=== PATIENT | female | born 1930 | race Caucasian/White ===

== ENCOUNTER 2017-03-13 17:17 | Inpatient (IN) ==
[2017-03-13] MEDS ORDERED: NS 500 ML IV ONE (17:41)
[2017-03-13] MEDS ORDERED: DILAUDID IV ONE (17:41)
[2017-03-13] MEDS ORDERED: ZOFRAN IV ONE (17:41)
--- NOTE | 2017-03-13 18:50 | Diag Imaging Result Doc PS360 ---
EXAM: XRAY PELVIS W/HIP 2-3VW LT HISTORY: fall TECHNIQUE: Three views COMPARISON: FINDINGS: There is a femoral neck fracture. The femoral head remains in the acetabulum. Femoral shaft is superiorly placed and rotated. IMPRESSION: Femoral neck fracture Electronically signed by West Schwarz 03/13/2017 6:48 PM
[2017-03-13 19:06] LABS: MANUAL DIFF NEEDED? NO
[2017-03-13 19:14] LABS: BASO% 0.4 % (0.0-0.8); EOS# 0.13 X1000 (0.0-0.7); EOS% 1.2 % (0.0-10.0); HEMOGLOBIN 12.4 g/dL (12.0-16.0); IMM GRAN# 0.07 X1000 (0.0-0.04); IMM GRAN% 0.7 % (0.0-0.5); LYMPH# 2.58 X1000 (1.2-3.4); LYMPH% 24.7 % (20.5-51.1); MCH 29.5 PG (27-31); MCHC 33.5 g/dL (33-37); MCV 88.1 FL (81-99); MONO# 0.57 X1000 (0.11-0.59); MONO% 5.5 % (1.7-9.3); MPV 9.8 FL (7.4-10.4); NEUT% 67.5 % (42.2-75.2); PLT 362 X1000 (130-400)
[2017-03-13 19:24] LABS: INR 1.02; PROTIME 10.7 Seconds (9.2-11.7)
[2017-03-13 19:33] LABS: ALBUMIN 3.9 g/dL (3.5-5.0); POTASSIUM 3.6 mmol/L (3.5-5.1); TOTAL BILIRUBIN 0.21 mg/dL (0.20-1.00); TOTAL PROTEIN 8.4 g/dL (6.3-8.3)
--- NOTE | 2017-03-13 19:42 | PROVIDER DOCUMENTATION ---
This chart was entered by Maty Cox Scribe, acting as scribe for Wesley Parmar MD. HPI-Musculoskeletal Pain/Inj - GENERAL Chief Complaint: Fall Stated Complaint: fall/L hip pain Time Seen by Provider: 03/13/17 17:41 Source: patient - HX OF PRESENT ILLNESS-MUSKULOSKELTAL Nature of Presenting Problem: Pt is 86 y/o F presents to the ED via EMS for L hip pain. Pt states fell while dressing self for bed. Pt denies head injury or LOC. Pt states lost balance Quality of Pain: reports: aching Severity in ED: mild Onset/Duration: just prior to arrival Timing: still present Modifying Factors: improves with: nothing Any recent injury?: Yes (fall ) Locality of Occurance: Home Similar Symptoms Previously?: No Recently seen or treated by another doctor?: No - FALL INJURY Location of Pain/Injury: reports: other (L hip) Pain Radiation: reports: no radiation Reason for Fall: reports: lost balance Symptoms prior to fall:: reports: none Loss of Consciousness: no loss of consciousness Injury Associated Symptoms: reports: denies symptoms - HIP/PELVIS PAIN/INJURY Hip Pain Location: reports: hip (L) Pain Radiation: reports: no radiation Context / Method of Injury: reports: fall Associated Symptoms: reports: weakness in legs/feet (L). denies: loss of bladder control, loss of bowel control, lower back pain, muscle spasms, numbness in legs/feet, sensory/motor loss, tingling in legs/feet Review of Systems - Adult - REVIEW OF SYSTEMS - ADULT Constitutional: reports: no symptoms reported Eyes: reports: no symptoms reported Ears, Nose, Mouth & Throat: reports: no symptoms reported Cardiovascular: reports: no symptoms reported Respiratory: reports: no symptoms reported Gastrointestinal: reports: no symptoms reported Genitourinary: reports: no symptoms reported Musculoskeletal: reports: other (L hip pain). denies: bone pain, back pain, neck pain Integumentary: reports: no symptoms reported Neurological: reports: no symptoms reported Psychiatric: reports: no symptoms reported Endocrine: reports: no symptoms reported Hematologic/Lymphatic: reports: no symptoms reported Allergic/Immunologic: reports: no symptoms reported All Other Systems: Reviewed and Negative Past History - Adult - PAST MEDICAL HISTORY-ADULT Review of Records: reports: Nursing Assessment Review, Medications Reviewed, Social history reviewed & non-contributory. Major Childhood Illnesses: reports: denies history Cardiovascular: reports: HTN Respiratory: reports: denies history Gastrointestinal: reports: denies history Obstetrical/Gynecological: reports: denies history Genitourinary: reports: denies history Musculoskeletal: reports: denies history Neurological: reports: denies history Endocrine/Immune: reports: denies history Other Conditions: reports: denies history - PRIOR SURGERIES/PROCEDURES Surgical/Procedure History: reports: other (C5-6 disc operation) - IMMUNIZATION STATUS Childhood Immunizations: See Nurse Assessment Flu Vaccine: See Nurse Assessment - FAMILY HISTORY Family History: reviewed, not pertinent - SOCIAL HISTORY Smoking: denies Substance Use: denies Living Situation: family Physical Exam-Injury Related - Physical Exam-Injury Related Initial Vital Signs Reviewed: Yes General Appearance: appears well, alert, no apparent distress Eyes: PERRL/EOMI, pink conjunctivae Head, Ears, Nose, Mouth & Throat: normal ENT inspection Neck: normal inspection Respiratory: chest non-tender, lungs clear, normal breath sounds Cardiovascular: normal peripheral pulses, regular rate, rhythm Abdominal Exam: normal bowel sounds, non tender, soft Lymphatic: no adenopathy Back Exam: CVA tenderness (lumbar) Extremity: tenderness (L hip). negative: normal range of motion (limited ROM to L hip due to pain), normal gait, deformity, erythema, swelling Integumentary: normal color, warm/dry Neurologic: grossly normal Psych/Mental Status: normal mood/affect, oriented x 3 Progress - PLAN OF CARE/RESULTS Progress/Plan/Lab Results: Vital Signs - 8 hr 03/13/17 17:17 03/13/17 19:23 Temperature 98.5 F Pulse Rate 103 H 104 H Respiratory Rate 18 16 Blood Pressure 170/94 162/99 O2 Sat by Pulse Oximetry 97 95 Laboratory Results - last 24 hr 03/13/17 03/13/17 03/13/17 17:25 17:25 17:25 WBC 10.43 RBC 4.20 Hgb 12.4 Hct 37.0 MCV 88.1 MCH 29.5 MCHC 33.5 RDW Std Deviation 12.6 Plt Count 362 MPV 9.8 Immature Gran % (Auto) 0.7 H Neut % (Auto) 67.5 Lymph % (Auto) 24.7 Wells % (Auto) 5.5 Eos % (Auto) 1.2 Baso % (Auto) 0.4 Immature Gran # (Auto) 0.07 H Neut # (Auto) 7.04 H Lymph # (Auto) 2.58 Wells # (Auto) 0.57 Eos # (Auto) 0.13 Baso # (Auto) 0.04 PT 10.7 INR 1.02 PTT (Actin FS) 29.0 Sodium 140 Potassium 3.6 Chloride 100 Carbon Dioxide 23 L Anion Gap 17 BUN 47 H Creatinine 1.8 H Estimated GFR/1.73 m2 27 BUN/Creatinine Ratio 26 Glucose 127 H Calculated Osmolality 293 Calcium 10.0 Total Bilirubin 0.21 AST 19 ALT 14 Alkaline Phosphatase 130 H Troponin T Total Protein 8.4 H Albumin 3.9 Globulin 4.5 Albumin/Globulin Ratio 0.9 03/13/17 17:25 WBC RBC Hgb Hct MCV MCH MCHC RDW Std Deviation Plt Count MPV Immature Gran % (Auto) Neut % (Auto) Lymph % (Auto) Wells % (Auto) Eos % (Auto) Baso % (Auto) Immature Gran # (Auto) Neut # (Auto) Lymph # (Auto) Wells # (Auto) Eos # (Auto) Baso # (Auto) PT INR PTT (Actin FS) Sodium Potassium Chloride Carbon Dioxide Anion Gap BUN Creatinine Estimated GFR/1.73 m2 BUN/Creatinine Ratio Glucose Calculated Osmolality Calcium Total Bilirubin AST ALT Alkaline Phosphatase Troponin T < 0.010 Total Protein Albumin Globulin Albumin/Globulin Ratio Orders Category Date Time Status XRAY PELVIS W/HIP 2-3VW LT [RAD] Stat Exams 03/13/17 17:39 Completed CBC WITH ELECTRONIC DIFF [HEME] Stat Lab 03/13/17 17:25 Completed COMPREHENSIVE METABOLIC PANEL [CHEM] Stat Lab 03/13/17 17:25 Completed PROTIME WITH INR [COAG] Stat Lab 03/13/17 17:25 Completed PTT [COAG] Stat Lab 03/13/17 17:25 Completed TROPONIN T Stat Lab 03/13/17 17:25 Completed URINALYSIS [URINALYSIS] Stat Lab 03/13/17 19:00 Uncollected 0.9% Sodium Chloride Inj [Ns] 500 ml Med 03/13/17 17:41 Discontinued IV 999 mls/hr Hydromorphone [Dilaudid] Med 03/13/17 17:41 Discontinued 1 mg IV NOW ONE Ondansetron [Zofran] Med 03/13/17 17:41 Discontinued 4 mg IV NOW ONE Laboratory Tests 03/13/17 03/13/17 03/13/17 17:25 17:25 17:25 WBC 10.43 RBC 4.20 Hgb 12.4 Hct 37.0 MCV 88.1 MCH 29.5 MCHC 33.5 RDW Std Deviation 12.6 Plt Count 362 MPV 9.8 Immature Gran % (Auto) 0.7 H Neut % (Auto) 67.5 Lymph % (Auto) 24.7 Wells % (Auto) 5.5 Eos % (Auto) 1.2 Baso % (Auto) 0.4 Immature Gran # (Auto) 0.07 H Neut # (Auto) 7.04 H Lymph # (Auto) 2.58 Wells # (Auto) 0.57 Eos # (Auto) 0.13 Baso # (Auto) 0.04 PT 10.7 INR 1.02 PTT (Actin FS) 29.0 Sodium 140 Potassium 3.6 Chloride 100 Carbon Dioxide 23 L Anion Gap 17 BUN 47 H Creatinine 1.8 H Estimated GFR/1.73 m2 27 BUN/Creatinine Ratio 26 Glucose 127 H Calculated Osmolality 293 Calcium 10.0 Total Bilirubin 0.21 AST 19 ALT 14 Alkaline Phosphatase 130 H Troponin T Total Protein 8.4 H Albumin 3.9 Globulin 4.5 Albumin/Globulin Ratio 0.9 03/13/17 17:25 WBC RBC Hgb Hct MCV MCH MCHC RDW Std Deviation Plt Count MPV Immature Gran % (Auto) Neut % (Auto) Lymph % (Auto) Wells % (Auto) Eos % (Auto) Baso % (Auto) Immature Gran # (Auto) Neut # (Auto) Lymph # (Auto) Wells # (Auto) Eos # (Auto) Baso # (Auto) PT INR PTT (Actin FS) Sodium Potassium Chloride Carbon Dioxide Anion Gap BUN Creatinine Estimated GFR/1.73 m2 BUN/Creatinine Ratio Glucose Calculated Osmolality Calcium Total Bilirubin AST ALT Alkaline Phosphatase Troponin T < 0.010 Total Protein Albumin Globulin Albumin/Globulin Ratio Orders Category Date Time Status XRAY PELVIS W/HIP 2-3VW LT [RAD] Stat Exams 03/13/17 17:39 Completed CBC WITH ELECTRONIC DIFF [HEME] Stat Lab 03/13/17 17:25 Completed COMPREHENSIVE METABOLIC PANEL [CHEM] Stat Lab 03/13/17 17:25 Completed PROTIME WITH INR [COAG] Stat Lab 03/13/17 17:25 Completed PTT [COAG] Stat Lab 03/13/17 17:25 Completed TROPONIN T Stat Lab 03/13/17 17:25 Completed URINALYSIS [URINALYSIS] Stat Lab 03/13/17 19:00 Uncollected 0.9% Sodium Chloride Inj [Ns] 500 ml Med 03/13/17 17:41 Discontinued IV 999 mls/hr Hydromorphone [Dilaudid] Med 03/13/17 17:41 Discontinued 1 mg IV NOW ONE Ondansetron [Zofran] Med 03/13/17 17:41 Discontinued 4 mg IV NOW ONE Vital Signs Temp Pulse Resp BP Pulse Ox 03/13/17 19:23 104 H 16 162/99 95 03/13/17 17:17 98.5 F 103 H 18 170/94 97 codeine Adverse Reaction (Verified 03/13/17 17:28) RASH Alprazolam 0.25 mg PO BID 04/21/16 Hydrochlorothiazide 25 mg PO DAILY 04/21/16 Omeprazole 20 mg PO DAILY 04/21/16 Tramadol [Ultram] 50 mg PO Q6H PRN 04/21/16 Valsartan 320 mg PO DAILY 04/21/16 Tizanidine HCl [Zanaflex] 8 mg PO QHS 03/13/17 Laboratory 03/13/17 03/13/17 03/13/17 17:25 17:25 17:25 WBC RBC Hgb Hct MCV MCH MCHC RDW Std Deviation Plt Count MPV Immature Gran % (Auto) Neut % (Auto) Lymph % (Auto) Wells % (Auto) Eos % (Auto) Baso % (Auto) Immature Gran # (Auto) Neut # (Auto) Lymph # (Auto) Wells # (Auto) Eos # (Auto) Baso # (Auto) PT 10.7 INR 1.02 PTT (Actin FS) 29.0 Sodium 140 Potassium 3.6 Chloride 100 Carbon Dioxide 23 L Anion Gap 17 BUN 47 H Creatinine 1.8 H Estimated GFR/1.73 m2 27 BUN/Creatinine Ratio 26 Glucose 127 H Calculated Osmolality 293 Calcium 10.0 Total Bilirubin 0.21 AST 19 ALT 14 Alkaline Phosphatase 130 H Troponin T < 0.010 Total Protein 8.4 H Albumin 3.9 Globulin 4.5 Albumin/Globulin Ratio 0.9 03/13/17 17:25 WBC 10.43 RBC 4.20 Hgb 12.4 Hct 37.0 MCV 88.1 MCH 29.5 MCHC 33.5 RDW Std Deviation 12.6 Plt Count 362 MPV 9.8 Immature Gran % (Auto) 0.7 H Neut % (Auto) 67.5 Lymph % (Auto) 24.7 Wells % (Auto) 5.5 Eos % (Auto) 1.2 Baso % (Auto) 0.4 Immature Gran # (Auto) 0.07 H Neut # (Auto) 7.04 H Lymph # (Auto) 2.58 Wells # (Auto) 0.57 Eos # (Auto) 0.13 Baso # (Auto) 0.04 PT INR PTT (Actin FS) Sodium Potassium Chloride Carbon Dioxide Anion Gap BUN Creatinine Estimated GFR/1.73 m2 BUN/Creatinine Ratio Glucose Calculated Osmolality Calcium Total Bilirubin AST ALT Alkaline Phosphatase Troponin T Total Protein Albumin Globulin Albumin/Globulin Ratio Result Diagrams: 03/13/17 17:25 03/13/17 17:25 - EKG 1 Time of EKG reading by physician:: 19:42 EKG Interpretation (*Must complete 3 of following elements*): Normal (NSR with occasional PVC) - XRAY 1 XRAY Study: Hip (left hip fracture) - CONSULTS/PCP/HOSPITALIST Notification #1 *Consult/PCP/Hospitalist*: Dr Borrero Time Discussed: 19:40 Consult Disposition: Admit #2 Consult: Dr Serrano Consult Disposition: other (will see in AM) Departure - Departure Date of Disposition Decision: 03/13/17 Time of Disposition Decision: 19:41 DIAGNOSIS: Fall Qualifiers: Encounter type: initial encounter Qualified Code(s): W19.XXXA - Unspecified fall, initial encounter Hip fracture Qualifiers: Encounter type: initial encounter Fracture type: closed Laterality: left Qualified Code(s): S72.002A - Fracture of unspecified part of neck of left femur , initial encounter for closed fracture Disposition: ADMITTED INPATIENT 09 Certified Medical Emergency: Emergent Condition: Fair Referrals and Follow-Ups: Rosalba Brooks MD [Primary Care Provider] - - Critical Care Note This patient required my direct & personal management of CC.: No This chart was documented by the indicated scribe, (Maty Cox Scribe) and accurately reflects the services I performed and decisions made by me, Wesley Parmar MD, as attested by the provider's signature.
[2017-03-13 19:59] LABS: URINE MICRO REVIEW NEEDED? NO; URINE SOURCE CATH
[2017-03-13 20:06] LABS: BILIRUBIN URINE NEGATIVE (NEGATIVE); BLOOD URINE TRACE (NEGATIVE); COLOR YELLOW; GLUCOSE URINE NEGATIVE (NEGATIVE); LEUKOCYTES URINE LARGE (NEGATIVE); NITRITE URINE POSITIVE (NEGATIVE); PH URINE 5.5; PROTEIN URINE TRACE mg/dL (NEGATIVE); SP GRAVITY URINE 1.009; TURBIDITY URINE HAZY (CLEAR); UR EPITHELIAL CELLS <10 /HPF (<10); URINE BACTERIA 2+ /HPF; URINE RBC <10 /HPF (<10); URINE WBC TNTC /HPF (<10); UROBILINOGEN URINE NORMAL (NORMAL)
[2017-03-13] MEDS ORDERED: ZOFRAN IV PRN (21:41)
[2017-03-13] MEDS: MORPHINE IV PRN (22:00)
[2017-03-13] MEDS: ROCEPHIN 1 GM/NS 1 GM/50 ML IVPB IV SCH (22:05)
[2017-03-13] MEDS ORDERED: TYLENOL PO PRN (22:27)
[2017-03-13] MEDS ORDERED: NS 1,000 ML IV SCH (23:52)
[2017-03-14] MEDS: MORPHINE IV PRN ×3 (00:50→14:44)
--- NOTE | 2017-03-14 03:52 | HISTORY AND PHYSICAL ---
TIME: 2014. PRIMARY CARE PROVIDER: Dr. Brooks. CHIEF COMPLAINT: Fall and left hip pain. HISTORY OF PRESENT ILLNESS: Ms. Morrow is an 86-year-old, female who presented to the ER [facility] after complaints of a fall with left hip pain at approximately 3:30 p.m. on March 13. She states that she was trying to put her pajamas on and was leaning forward to put her pajama shirt on when she lost her balance, falling forward and landing on her left hip. The patient denied any dizziness, lightheadedness, or syncopal episode prior to her fall. She fell from a standing position. She denies any other injuries. She denies hitting her head. She denies any loss of consciousness. Upon arrival to the ER, the patient was noted to have left hip pain with some shortening, though no rotation noted to her left lower extremity. An x- ray of pelvis with left hip view showed a left femoral neck fracture. ER physician did consult Dr. Serrano with orthopedic surgery and he is aware of the patient and will see her in the morning. Also, the patient was noted to have elevated BUN and creatinine with a decreased GFR. The only previous labs we have to compare these to were last drawn in April of 2016. At that time, her GFR was 43, her creatinine was 1.2, though her BUN was within normal limits at 22. The patient denied any known previous history of any kidney disease. She denies any decreased fluid intake, or a decrease in her urine output, or a change in her urine color. She also denies any fever, body aches, or chills. She denied any dysuria or urinary frequency, though she does have a nitrite positive urinary tract infection noted. She also denied any recent changes to any of her medications. She denies any headache, dizziness, lightheadedness, chest pain, shortness of breath, cough, She denies any abdominal pain, nausea, vomiting, diarrhea. She states that her last bowel movement was this morning. It was of normal color. She denies any hematochezia or melena. She denies any history of a previous pulmonary embolism or DVTs. Other than some chronic neck pain that she has secondary to a previous cervical fusion, she has no other pain except for her new onset left hip pain secondary to her fracture. REVIEW OF SYSTEMS: A 12 point review of systems was conducted with the patient. All were negative except for pertinent positives mentioned above in the HPI. PAST MEDICAL HISTORY: 1. Hypertension. 2. 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 3. Anxiety. 4. Gastroesophageal reflux disease. PAST SURGICAL HISTORY: Cervical fusion. SOCIAL HISTORY: The patient denies any past or present alcohol, tobacco, or illicit drug use. She currently lives at home by herself and is normally able to perform her activities of daily living without any assistance, though did state that she has a son that lives close by who is able to help her if she needed. FAMILY HISTORY: Positive for diabetes mellitus in her mother. Her father has a history of prostate cancer and heart disease. She has 12 other siblings. She has 1 sister who has a history of breast cancer. She has a total of 3 brothers who have had colon cancer, 2 of which secondary to this. ALLERGIES: Patient reports allergies to codeine, stating that it caused her to have a rash. HOME MEDICATIONS: Zanaflex 8 mg p.o. at bedtime, valsartan 320 mg p.o. daily, tramadol 50 mg p.o. q.6 hours p.r.n., omeprazole 20 mg p.o. daily, hydrochlorothiazide 25 mg p.o. daily, Xanax 0.25 mg p.o. b.i.d. DIAGNOSTIC DATA/LABORATORY RESULTS: White blood cell count 10.43, hemoglobin 12.4, hematocrit 37, platelet count is 362,000. PT 10.7, INR 1.02, PTT 29. Sodium 140, potassium 3.6, chloride 100, bicarb 23, BUN is 47, creatinine 1.8, with an estimated GFR of 27, glucose 127, calcium 10. Total bilirubin 0.21, AST 19, ALT 14, alkaline phosphatase 130. Troponin was less than 0.01. Urinalysis was obtained via catheter and was positive for trace protein, trace blood, positive nitrites, large leukocytes, too numerous to count white blood cells, and 2+ bacteria. EKG showed sinus rhythm with occasional PVCs as well as some left ventricular hypertrophy at a rate of 99, QTc was 433. Pelvis with left hip view showed a left femoral neck fracture per radiology. PHYSICAL EXAMINATION: VITAL SIGNS: Temperature 99 degrees, heart rate 103, respirations 18, blood pressure 159/71, oxygen saturation is 97% on room air. GENERAL: Ms. Morrow is a very pleasant, 86-year-old, female who is resting comfortably on the ER stretcher. She was in no acute distress. She was awake, alert, and able to answer all questions appropriately. HEENT: Head is atraumatic, normocephalic. Pupils are equal, round, reactive to light, were 3 mm bilaterally and brisk. Subconjunctivae were pink. Oral mucosa was moist. Oropharynx was clear. NECK: Supple. Trachea midline. No carotid bruits noted upon auscultation bilaterally. CARDIOVASCULAR: Patient has normal S1, S2. No murmurs, gallops, or rubs appreciated, with a regular rate and rhythm. PULMONARY: Patient has symmetrical chest expansion bilaterally. Lung sounds are clear to auscultation in bilateral full pulliam. ABDOMEN: Soft, nontender, nondistended. Bowel sounds are present in all 4 quadrants. GENITOURINARY: Patient has a Villarreal catheter in place at this time. She does have a small amount of clear yellow urine noted to the Villarreal drainage bag, though this had just recently been emptied with 800 mL of urine output. EXTREMITIES: No cyanosis, clubbing, or edema noted. Pulse, motor, and sensory are intact in all extremities. Pedal pulses are 3+ bilaterally. The patient is reporting some pain to her left hip with movement, though at rest she is comfortable at this time with her pain being controlled. Her left leg is slightly shortened, though no rotation noted. INTEGUMENTARY: The patient's skin is pink, warm, dry, and intact. No lesions or sores noted. NEUROLOGICAL: Patient is alert and oriented x4. Cranial nerves 2-12 are grossly intact. ASSESSMENT AND PLAN: 1. Left femoral neck fracture secondary to a fall from a standing position. As previously mentioned, the patient has been placed on strict bedrest. She has had a Villarreal catheter placed. Dr. Serrano with orthopedic surgery has been consulted and will see her in the morning. She also has been placed nothing per oral. Type and screen has also been ordered as well as a chest x-ray for in the morning. We will continue to follow and await orthopedic surgery evaluation for their recommendations. 2. Urinary tract infection. The patient does have a nitrite positive urinary tract infection noted. A urine culture has been ordered. We will treat her with Rocephin 1 g intravenous every 24 hours and await culture results and continue to follow. 3. Acute on chronic kidney disease. Patient's creatinine is elevated from previous labs approximately a little over year ago from 1.2 to now 1.8. There is a reduction in her GFR as well from 44 now to 27. This is of uncertain etiology, though could be medication related. The patient does take hydrochlorothiazide as well as valsartan. We will hold these medications as well as any other nephrotoxic medications. We will treat her with some gentle fluid resuscitation with normal saline at 100 mL per hour. She did receive a 1 L normal saline bolus in the emergency room. We will repeat a BMP in the morning and continue to follow closely. 4. Hypertension. As previously mentioned, we have held the patient's hydrochlorothiazide and valsartan secondary to possible acute on chronic kidney disease. We will place her on Norvasc 5 mg by mouth daily and monitor her blood pressures closely. 5. Anxiety. We will continue her Xanax as previously prescribed. 6. Chronic pain. She normally takes Ultram, though given her acute fracture, we will treat her with morphine 2 mg intravenous every 3 hours. We will continue to follow. 7. Gastroesophageal reflux disease. We will continue her omeprazole 20 mg by mouth daily. 8. Deep vein thrombosis prophylaxis. At this time, we have held any anticoagulants given that she is a surgical patient. We will place sequential compression devices but if the patient is unable to tolerate this secondary to pain, we will do BRITTANI hose instead. The patient will be placed on the medical floor with telemetry. She will have vital signs every 8 hours. She will be on strict bedrest. We will do strict intakes and outputs. We will do incentive spirometry. She will be nothing per oral . We have placed a case management/social media assistant consult for possible rehab placement upon discharge. We will repeat a CBC and BMP in the morning. Further orders and recommendations pending hospital course, diagnostic studies, and physician evaluation. Dictated by STEPAN Soto for Art Sherman MD cc: MD Edmond Dent MD [facility]
[2017-03-14 05:47] LABS: MANUAL DIFF NEEDED? NO
[2017-03-14 05:52] LABS: BASO% 0.3 % (0.0-0.8); EOS# 0.05 X1000 (0.0-0.7); EOS% 0.4 % (0.0-10.0); HEMATOCRIT 35.6 % (37.0-47.0); HEMOGLOBIN 11.9 g/dL (12.0-16.0); IMM GRAN# 0.04 X1000 (0.0-0.04); IMM GRAN% 0.3 % (0.0-0.5); LYMPH# 1.95 X1000 (1.2-3.4); LYMPH% 13.8 % (20.5-51.1); MCH 29.6 PG (27-31); MCHC 33.4 g/dL (33-37); MCV 88.6 FL (81-99); MONO# 0.78 X1000 (0.11-0.59); MONO% 5.5 % (1.7-9.3); MPV 9.2 FL (7.4-10.4); NEUT% 79.7 % (42.2-75.2); PLT 299 X1000 (130-400); RBC 4.02 XMIL (4.2-5.4)
[2017-03-14 06:19] LABS: CALCIUM 9.8 mg/dL (8.8-10.2); POTASSIUM 4.2 mmol/L (3.5-5.1)
[2017-03-14] MEDS: PRILOSEC PO SCH (06:39)
--- NOTE | 2017-03-14 07:12 | Diag Imaging Result Doc PS360 ---
EXAM: CHEST-PORTABLE HISTORY: Left Hip Fx, Surgical Patient TECHNIQUE: Semiupright portable AP COMPARISON: 02/22/2014 FINDINGS: The lungs are well expanded. The heart is not enlarged. The vessels are not distended. No pneumonia. No pleural effusions identified. IMPRESSION: Negative chest. Electronically signed by West Schwarz 03/14/2017 7:10 AM
[2017-03-14] MEDS ORDERED: FENTANYL ONE (08:39)
[2017-03-14] MEDS ORDERED: XYLOCAINE-MPF 2% ONE (08:39)
[2017-03-14] MEDS ORDERED: DIPRIVAN 1% ONE (08:39)
--- NOTE | 2017-03-14 10:48 | PROGRESS NOTE ---
DATE: 03/14/2017 SUBJECTIVE: An 86-year-old, white, female patient admitted status post fall, sustained left femur neck fracture. The patient is doing better this morning. Her pain is under control. She denied any chest pain or palpitations. Denied being dizzy or lightheaded. No abdominal pain, nausea, vomiting. No dysuria. The patient had Villarreal catheter for gross hematuria. Admission history and physical noted. PAST MEDICAL HISTORY: Significant for hypertension, gastritis and reflux disease, chronic neck pain, anxiety. PHYSICAL EXAMINATION: Vital Signs: Her vital signs noted. Patient is afebrile. Neck: Supple. No JVD. Lungs: Bilateral good air entry present. No rales. CVS: S1 and S2 heard. No gallop or thrill. Abdomen: Soft. No distention. Bowel sounds present. Extremities: No cyanosis, clubbing. No acute DVT. Movement of left hip painful. INTERMEDIATE CARD TENDER: Alert, awake, answering questions fair. The patient does have mild hearing impairment. LAB DATA: Admission lab data revealed WBC count 10.43. Blood work done today, WBC count 14.13, hemoglobin 11.9, hematocrit 35.6, platelet count 299,000. Electrolytes done today, BUN 36, creatinine 1.5. Urinalysis did reveal UTI. PROBLEM LIST: 1. Left femur neck fracture. 2. Mild renal insufficiency. 3. Urinary tract infection. 4. Hypertension. PLAN: The patient is on IV antibiotics, IV fluid. The patient is on Xanax for her anxiety. Pain management. I had a lengthy discussion with the patient's family about the risks of anesthesia and surgery, postoperative complications. They understood and agreed. Patient and family denied any cardiac problem in the past. No current chest pain. cc: MD Edmond Shin MD
[2017-03-14] MEDS ORDERED: NEOSPORIN G.U. IRRIGANT ONE (10:55)
[2017-03-14] MEDS ORDERED: KEFZOL 1 GM/D5W 1 GM/50 ML IVPB ONE (11:05)
[2017-03-14] MEDS ORDERED: DECADRON ONE (11:23)
[2017-03-14] MEDS ORDERED: ZOFRAN ONE (11:23)
[2017-03-14] MEDS ORDERED: MORPHINE ONE ×2 (12:47→13:00)
[2017-03-14] MEDS ORDERED: HALDOL IV PRN (12:51)
[2017-03-14] MEDS ORDERED: MILK OF MAGNESIA PO PRN (12:51)
[2017-03-14] MEDS ORDERED: ZOFRAN IV PRN (12:51)
--- NOTE | 2017-03-14 13:20 | Diag Imaging Result Doc PS360 ---
EXAM: XRAY HIP UNILATERAL LT HISTORY: LT BIPOLAR HIP TECHNIQUE: Two views COMPARISON: 03/13/2017 FINDINGS: The patient has undergone orthopedic replacement of the left hip since the prior exam. Femoral head component is well positioned in the acetabular component. There is good positioning in the femoral shaft. There are lateral skin silvano. IMPRESSION: Recently replaced left hip. Electronically signed by West Schwarz 03/14/2017 1:17 PM
--- NOTE | 2017-03-14 14:32 | CONSULTATION ---
DATE OF CONSULTATION: 03/14/2017 PRIMARY: Dr. Brooks. CHIEF COMPLAINT: Pain left hip. HISTORY OF PRESENT ILLNESS: Placed very pleasant 86-year-old female that is awake, alert this morning with an attentive son by her bedside. She reports yesterday afternoon about 3:30 she was trying to put on her pajamas and she fell from a standing position. She states she simply got her leg caught in the pajama leg and went down. There was no loss of consciousness, dizziness, lightheadedness preceding the fall. She fell directly onto the hip. She states that she did not hit her head or other extremities. She states she felt a pop in the hip and was unable to walk afterwards. She was brought to emergency department where x-rays confirmed a fracture the hip. She was seen in the emergency department yesterday by Sara Cha, [facility] practitioner for Dr. Art Sherman. She was noted to have a urinary tract infection and was treated on Rocephin. Other than the hip fracture and the UTI she denies any other issues. PAST MEDICAL HISTORY: Hypertension, chronic neck pain secondary to previous cervical fusion, anxiety, gastroesophageal reflux disease. PAST SURGICAL HISTORY: Cervical fusion, bilateral cataract extraction with lens implants. CURRENT MEDICATIONS: As per the chart and reviewed with her and her son. ALLERGIES: Patient reports allergy to codeine stating that it caused nausea, vomiting. She reports a recent allergy to cortisone causing a rash. SOCIAL HISTORY: Patient denies any history of alcohol, tobacco or illicit drug use. She lives at home and is able to perform all activities of daily living. She has a son that lives near by if she needs help. FAMILY HISTORY: Reviewed and noncontributory. REVIEW OF SYSTEMS: HEENT: Patient denies any history of macular degeneration, glaucoma. She has had previous cataract extraction with lens implants. Cardiac: She denies a history of coronary artery disease, myocardial infarction. She denies any current chest pain or pressure. Pulmonary: Denies a history of asthma, COPD, emphysema. No current cough or shortness of breath. Gastrointestinal: Patient denies any nausea, vomiting, diarrhea. She does have gastroesophageal reflux disease that she reports is well controlled at this time. Genitourinary: She denies any increased urinary frequency, dysuria. It is noted by her UA that she had a urinary tract infection upon presentation emergency department. She has been appropriately treated with Rocephin to this point. Musculoskeletal: Patient has had pain in the left hip since fall yesterday. She states she was unable to walk after the fall. She denies any other musculoskeletal injuries. PHYSICAL EXAM: Patient has shortened external rotation of the left lower extremity. There is pain with log rolling the left lower extremity. No pain with pelvic compression. Calf is supple on the left lower extremity. X-RAYS: Views of the pelvis and hip revealed displaced left femoral neck fracture. IMPRESSION: 1. Displaced left femoral neck fracture. 2. Urinary tract infection. PLAN: Patient's urinary tract infection is being treated appropriate Rocephin at this time. Her hip injury will require surgical fixation. The referred surgery would be left hip hemiarthroplasty. The surgery and recovery discussed in detail with her and her son. Risk, complication including but not limited to bleeding, infection, neurovascular damage, increased risk of DVT, intraoperative fracture, leg length discrepancy, risk of dislocation, anesthetic risks, hardware failure, and other catastrophic outcomes were discussed with her and her son. They verbalized understanding. Will plan surgery today. Patient will also require rehabilitation placement at time of discharge. She and son are agreeable to this. cc: DO Edmond Rogers MD
[2017-03-14] MEDS: TYLENOL PO SCH ×2 (14:44→20:05)
[2017-03-14] MEDS: NORVASC PO SCH (18:17)
[2017-03-14] MEDS: NS 1,000 ML IV SCH (18:39)
--- NOTE | 2017-03-14 19:30 | OPERATIVE NOTE ---
PROCEDURE DATE: 03/14/2017 PREPROCEDURE DIAGNOSIS: Displaced left femoral neck fracture. POSTOPERATIVE DIAGNOSIS: Displaced left femoral neck fracture. PROCEDURE: Left hip hemiarthroplasty. SURGEON: Mayo Serrano DO. ANESTHESIA: General endotracheal. ANTIBIOTICS: Ancef 1 g IV preoperatively. EBL: 150 mL. FLUIDS: Per anesthesia. DRAINS: None. SPECIMENS: None. COMPLICATIONS: None. IMPLANTS: [employer]. 1. Corail hip system cementless femoral stem PEGUERO coated, size 12 standard offset. 2. Self-centering bipolar head, 47 mm OD. 3. Articul/HILTON femoral head +1.5 mm. HISTORY OF PRESENT ILLNESS: The patient is a very pleasant, 86-year-old female that tripped yesterday afternoon when trying to put on her pajamas. She fell, landing on the left hip. She complained of pain only in the left hip. She denies any loss of consciousness with the fall. There was no dizziness or lightheadedness prior to the fall. X-rays confirmed a displaced fracture of the left femoral neck. DESCRIPTION OF PROCEDURE: Patient was taken to the OR suite and given benefit of general aesthetic in her hospital bed. She was then positioned 1st supine and then lateral recumbent position with left side up on the operating table. She was held in position with a pegboard. Once she was appropriately padded, she was prepped on the left lower extremity with Hibiclens solution, Betadine, and then ChloraPrep. She was then sterilely draped. Standard lateral incision was drawn out centering over the greater trochanter of the femur. Once drawn out drape. Sharp dissection was used to open the skin and subcutaneous tissues down to the tensor fascia. A small opening was made in the tensor fascia and Aguilar scissors were then used to open the tensor fascia in line with skin incision. A Charnley self-retaining retractor was then placed, visualizing the gluteus medius as well as the greater trochanter. Next the gluteus medius and minimus were then reflected from the greater trochanter using electrocautery. They were opened to the tip of the greater trochanter in the 11 o'clock position and dissection was taken until the acetabular was palpable. Good soft tissue retraction with standard T capsulotomy was performed revealing fresh hematoma as expected with an acute fracture. Once the capsule was opened the femur was rotated into view and an oscillating saw was used to smooth the neck, cut at appropriate length. Neck cut as well as femoral head and then removed. The femoral head was sized and appropriate size femoral cup was placed in the acetabulum, noting excellent seat and fill. The trial cup was removed and attention turned to the femur. Femur was brought into flexion, abduction, external rotation. A blunt-tip cobra retractor was placed on the proximal femur. Box osteotome was used to open up the proximal canal of the femur, followed by a T-handle reamer down the canal. The canal was then sequentially broached to a size 12 stem. With the size 12 trial stem having excellent fit and fill, a standard neck length and position was placed and the hip was reduced. With the trial in place, the hip was put through range of motion and had excellent stability. The hip was dislocated and all trial components were removed. With good soft tissue retraction the wound with pulsatile lavaged and then dried. The final Corail stem was placed down the canal of the femur. Once in position the final bipolar assembly was constructed and affixed onto the stem. With all trial components in place the hip was reduced and again put through range of motion with excellent stability. The wound was then thoroughly flushed with the pulsatile lavage and dried. The capsule was repaired with #1 Polysorb [id number] interrupted sutures. Once this layer was closed the wound again was flushed with pulsatile lavage and dried. The gluteus medius and minimus were reattached to the greater trochanter of the femur with a combination of #2 force fiber and #1 Polysorb with bony bites through the proximal femur, securing the muscles back in their anatomical space. Once the gluteus muscles were reattached the wound again was flushed and dried. The tensor fascia was then closed with #1 Polysorb [id number] interrupted sutures. Again, the wound was cleansed and dried. Final skin closure was done with 2-0 Polysorb interrupted suture followed by skin silvano. The wound was then cleansed, dried, and covered with Xeroform, 4 x 4, ABD, and micropore tape. Patient was then returned supine to her hospital bed after drapes had been broken down and discarded. She was taken to recovery room in stable condition. cc: DO Edmond Rogers MD
[2017-03-14] MEDS: COLACE PO SCH (20:05)
[2017-03-14] MEDS: KEFZOL 1 GM/D5W 1 GM/50 ML IVPB IV SCH (20:06)
[2017-03-14] MEDS: PERIDEX MT SCH (21:00)
[2017-03-14] MEDS: ROCEPHIN 1 GM/NS 1 GM/50 ML IVPB IV SCH (21:33)
[2017-03-14] MEDS: XANAX PO PRN (21:33)
[2017-03-15] MEDS: KEFZOL 1 GM/D5W 1 GM/50 ML IVPB IV SCH ×2 (02:53→11:13)
[2017-03-15] MEDS: NS 1,000 ML IV SCH (02:55)
[2017-03-15 05:13] LABS: MANUAL DIFF NEEDED? NO
[2017-03-15 05:18] LABS: BASO% 0.1 % (0.0-0.8); HEMATOCRIT 33.6 % (37.0-47.0); HEMOGLOBIN 11.2 g/dL (12.0-16.0); IMM GRAN# 0.03 X1000 (0.0-0.04); IMM GRAN% 0.2 % (0.0-0.5); LYMPH# 1.45 X1000 (1.2-3.4); LYMPH% 8.8 % (20.5-51.1); MCH 29.5 PG (27-31); MCHC 33.3 g/dL (33-37); MCV 88.4 FL (81-99); MONO# 1.19 X1000 (0.11-0.59); MONO% 7.2 % (1.7-9.3); MPV 9.3 FL (7.4-10.4); NEUT% 83.7 % (42.2-75.2); PLT 280 X1000 (130-400)
[2017-03-15] MEDS: TYLENOL PO SCH ×3 (05:27→20:34)
[2017-03-15] MEDS: XARELTO PO SCH (05:27)
[2017-03-15] MEDS: MORPHINE IV PRN ×4 (05:27→20:35)
[2017-03-15 05:35] LABS: ALBUMIN 3.4 g/dL (3.5-5.0); CALCIUM 9.2 mg/dL (8.8-10.2); MAGNESIUM 1.7 mg/dL (1.5-2.7); POTASSIUM 3.8 mmol/L (3.5-5.1); TOTAL BILIRUBIN 0.42 mg/dL (0.20-1.00); TOTAL PROTEIN 7.3 g/dL (6.3-8.3)
[2017-03-15] MEDS: PRILOSEC PO SCH (06:27)
[2017-03-15] MEDS: NORVASC PO SCH (08:25)
[2017-03-15] MEDS: PERIDEX MT SCH (08:25)
[2017-03-15] MEDS: FERROUS SULFATE PO SCH (08:25)
--- NOTE | 2017-03-15 10:09 | EKG Report ---
Test Performed on : 03/14/2017 5:06:48 PM Test Reason : CP Blood Pressure : / mmHG Vent. Rate : 086 BPM Atrial Rate : 086 BPM P-R Int : 144 ms QRS Dur : 088 ms QT Int : 370 ms P-R-T Axes : 051 -24 016 degrees QTc Int : 442 ms Normal sinus rhythm. Nonspecific ST and T wave abnormality Abnormal ECG When compared with ECG of 14-MAR-2017 17:05, (Unconfirmed) premature ventricular complexes. are no longer present Confirmed by Carlitos Howe MD ([id number]) on 03/16/2017 12:26:11 PM
--- NOTE | 2017-03-15 12:51 | EKG Report ---
Test Performed on : 03/13/2017 5:23:55 PM Test Reason : ED. NOT ORDERED IN [place] Blood Pressure : / mmHG Vent. Rate : 099 BPM Atrial Rate : 099 BPM P-R Int : 176 ms QRS Dur : 094 ms QT Int : 338 ms P-R-T Axes : 061 -21 068 degrees QTc Int : 433 ms Sinus rhythm. with occasional premature ventricular complexes. Left ventricular hypertrophy with repolarization abnormality Abnormal ECG When compared with ECG of 21-APR-2016 07:24, No significant change was found Unconfirmed Result
[2017-03-15] MEDS: OXY IR PO PRN ×3 (14:16→22:34)
[2017-03-15] MEDS: COLACE PO SCH (20:34)
[2017-03-15] MEDS: XANAX PO PRN (20:34)
[2017-03-15] MEDS: ROCEPHIN 1 GM/NS 1 GM/50 ML IVPB IV SCH (20:35)
--- NOTE | 2017-03-15 22:04 | PROGRESS NOTE ---
DATE: 03/15/2017 SUBJECTIVE: Ms. Morrow is an 86-year-old female who is postoperative day 1 from a left hip hemiarthroplasty. She has no new complaints. She has made slow progress with physical therapy due to pain. OBJECTIVE: General: She is a well-developed, well-nourished female. She is alert and cooperative with the examination. Vital Signs: Stable. She is afebrile. Her hematocrit is 33.6, her hemoglobin is 11.2. Her incision is clean, dry, intact without sign of infection. Her calf is soft. Her leg is neurovascularly intact. ASSESSMENT: Postoperative day 1 from a left hip hemiarthroplasty. PLAN: We will continue working with her with physical therapy. She can be transferred to rehab later this week. Dictated by SALVADOR Khan for Pb Cabral MD cc: SALVADOR Khan MD Jagan Reddy, MD
[2017-03-16] MEDS: PERIDEX MT SCH ×3 (03:03→20:11)
[2017-03-16] MEDS: ROCEPHIN 1 GM/NS 1 GM/50 ML IVPB IV SCH ×3 (03:04→22:00)
--- NOTE | 2017-03-16 04:21 | PROGRESS NOTE ---
DATE: 03/15/2017 SUBJECTIVE: Interval history was reviewed. An 86-year-old white female, admitted to the hospital after she fell at home, sustained an injury to the left hip. Patient was admitted on Wednesday. Patient was seen by Dr. Mayo Serrano, who did a hip surgery. Postoperative course was uneventful. REVIEW OF SYSTEMS: HEENT: No headache. No vision problem. No earache. No sore throat. Neck: No goiter. No lymphadenopathy. No bruit. Cardiopulmonary: No chest pain, shortness of breath, PND, orthopnea. Gastrointestinal: No nausea, vomiting, abdominal pain. Genitourinary: No history of hesitancy, frequency. No swelling of legs. Some pain on the left hip. PAST MEDICAL HISTORY: Reviewed. PAST SURGICAL HISTORY: Reviewed. MEDICINES: Reviewed. PHYSICAL EXAMINATION: Vital Signs: Afebrile, tachycardic. Blood pressure is 174/71, room air 97%. HEENT: Within normal limits. Neck: Supple. No lymphadenopathy. Chest: Clear to auscultation. Heart: Sounds are regular. No murmur. Abdomen: Belly is soft, nontender. Good bowel sounds. No masses palpable. Neurologic: Nonfocal. INVESTIGATIONS: White cell count 16, hematocrit 33, platelets 280,000. SMA-7: Sodium 143, potassium 3.8, chloride 104, BUN 25, creatinine 1.4. Urinalysis is positive for infection. Urine cultures are positive for Gram negative rods. ASSESSMENT AND PLAN: 1. Left hip fracture repair, stable. 2. Urinary tract infection, currently receiving IV ceftriaxone. 3. Deep venous thrombosis prophylaxis. Xarelto 10 mg daily. 4. Elevated white cell count. Follow up on culture and sensitivities. 5. Azotemia is improving. Discontinue IV fluids. 6. Inpatient physical therapy. 7. Disposition: The patient wants to go for rehab. Discontinue Villarreal. Repeat the labs in the morning. LEVEL OF DOCUMENTATION: 35 minutes. cc: Edmond Brooks MD
[2017-03-16] MEDS: OXY IR PO PRN ×6 (04:34→20:12)
[2017-03-16] MEDS: TYLENOL PO SCH ×3 (04:34→20:11)
[2017-03-16 06:02] LABS: HEMATOCRIT 33.3 % (37.0-47.0); HEMOGLOBIN 10.8 g/dL (12.0-16.0)
[2017-03-16] MEDS: XARELTO PO SCH (06:43)
[2017-03-16] MEDS: PRILOSEC PO SCH (06:43)
[2017-03-16] MEDS: FERROUS SULFATE PO SCH (08:23)
[2017-03-16] MEDS: XANAX PO PRN ×2 (08:23→20:11)
[2017-03-16] MEDS: NORVASC PO SCH (08:23)
--- NOTE | 2017-03-16 14:29 | PROGRESS NOTE ---
DATE: 03/16/2017 SUBJECTIVE: Ms. Morrow is an 86-year-old male, who is postoperative day 2 from a left hip hemiarthroplasty. She has no new complaints. OBJECTIVE: General: She is a well-developed, well-nourished female. She is alert. Cooperative with examination. Vital Signs: Stable. She is afebrile. Her hemoglobin is 10.8 and her hematocrit was 33.3. Yesterday she walked 5 feet with physical therapy. Her incision is clean, dry, and intact without sign of infection. Her calf is soft and her leg is neurovascularly intact. ASSESSMENT: Postoperative day 2 from a left hip hemiarthroplasty. PLAN: We will continue working with her with physical therapy. She can be transferred to rehab later this week. Dictated by SALVADOR Khan for Pb Cabral MD cc: SALVADOR Khan MD Jagan Reddy, MD
[2017-03-16] MEDS ORDERED: VOLTAREN 1% GEL TOP PRN (14:31)
[2017-03-16] MEDS: COLACE PO SCH (20:12)
--- NOTE | 2017-03-16 22:52 | PROGRESS NOTE ---
DATE: 03/16/2017 SUBJECTIVE: The patient is doing very well. Anxious. Wants some Xanax. Villarreal was out. Urine showing E. Coli., ESBL negative. REVIEW OF SYSTEMS: None reported. OBJECTIVE: Low-grade fever 100, slightly tachycardic. Hematocrit was 33. Urine cultures were positive for infection with the Escherichia coli sensitive to cefazolin. ASSESSMENT AND PLAN: 1. Status post left hip surgery, stable. Elevated white cell count. Fever. 2. Urinary tract infection. Off Villarreal continue. On IV ceftriaxone. We will hold off discharge. 3. Chronic anxiety, on Xanax. 4. Hypertension is controlled. Repeat the labs in the morning. Discussed the plan of care. Continue out of bed with physical therapy. LEVEL OF DOCUMENTATION: 15 minutes. cc: Edmond Brooks MD
[2017-03-17] MEDS: OXY IR PO PRN ×5 (03:45→20:56)
[2017-03-17] MEDS: TYLENOL PO SCH ×4 (03:46→20:56)
[2017-03-17 05:29] LABS: MANUAL DIFF NEEDED? NO
[2017-03-17 05:35] LABS: BASO% 0.4 % (0.0-0.8); EOS# 0.16 X1000 (0.0-0.7); EOS% 1.2 % (0.0-10.0); HEMATOCRIT 32.4 % (37.0-47.0); HEMOGLOBIN 10.5 g/dL (12.0-16.0); IMM GRAN# 0.05 X1000 (0.0-0.04); IMM GRAN% 0.4 % (0.0-0.5); LYMPH# 1.61 X1000 (1.2-3.4); LYMPH% 11.8 % (20.5-51.1); MCHC 32.4 g/dL (33-37); MCV 89.5 FL (81-99); MONO# 1.05 X1000 (0.11-0.59); MONO% 7.7 % (1.7-9.3); MPV 9.4 FL (7.4-10.4); NEUT% 78.5 % (42.2-75.2); PLT 293 X1000 (130-400); RBC 3.62 XMIL (4.2-5.4)
[2017-03-17] MEDS: XARELTO PO SCH (06:31)
[2017-03-17] MEDS: PRILOSEC PO SCH (06:31)
[2017-03-17] MEDS: NORVASC PO SCH (08:14)
[2017-03-17] MEDS: XANAX PO PRN ×2 (08:14→20:57)
[2017-03-17] MEDS: FERROUS SULFATE PO SCH (08:14)
[2017-03-17] MEDS: PERIDEX MT SCH (09:58)
--- NOTE | 2017-03-17 11:54 | PROGRESS NOTE ---
DATE: 03/17/2017 SUBJECTIVE: Patient is doing very well. Slept very well. Able to walk. REVIEW OF SYSTEMS: None reported. OBJECTIVE: Vital signs: She is afebrile. Vital Signs: Stable. HEENT: Within normal limits. Neck: Supple. No lymphadenopathy. Chest: Clear. Heart: Sounds are regular. Abdomen: Belly is soft, nontender. Good bowel sounds. Extremities: No peripheral edema or cyanosis. No obvious neurological deficits. INVESTIGATIONS: CBC: White cell count 13, hematocrit 32, platelets 293,000. Urine cultures are positive for E. coli. ASSESSMENT AND PLAN: 1. Status post lift left hip femur fracture repair, stable. 2. Urinary tract infection. Continue on IV ceftriaxone. 3. Deep vein thrombosis prophylaxis. Xarelto. 4. Hypertension. On amlodipine. 5. Chronic anxiety. On Xanax. 6. Discussed with the patient that she will be ready to be discharged in the morning for rehab. cc: Edmond Brooks MD
[2017-03-17] MEDS: MORPHINE IV PRN (15:03)
[2017-03-17] MEDS: COLACE PO SCH (20:57)
[2017-03-17] MEDS: ROCEPHIN 1 GM/NS 1 GM/50 ML IVPB IV SCH (20:57)
[2017-03-18] MEDS: PERIDEX MT SCH ×2 (02:40→08:43)
[2017-03-18] MEDS: OXY IR PO PRN ×2 (03:46→06:40)
[2017-03-18] MEDS: TYLENOL PO SCH ×2 (06:39→12:24)
[2017-03-18] MEDS: XARELTO PO SCH (06:40)
[2017-03-18] MEDS: PRILOSEC PO SCH (06:40)
[2017-03-18] MEDS: FERROUS SULFATE PO SCH (08:43)
[2017-03-18] MEDS: NORVASC PO SCH (08:43)
[2017-03-18] MEDS: XANAX PO PRN (08:43)
--- NOTE | 2017-03-18 09:07 | DISCHARGE SUMMARY ---
ADMISSION DATE: 03/13/2017 DISCHARGE DATE: 03/18/2017 DISCHARGING DIAGNOSIS: Left hip fracture. SECONDARY DIAGNOSES: 1. Urinary tract infection with extended spectrum beta-lactamase negative Escherichia coli. 2. Hypertension. 3. Palpitation. 4. Acid reflux disease. 5. Chronic anxiety. 6. Osteoarthritis. CONSULTANTS: Dr. Zach Hendrickson. PROCEDURES: Left Hip_hemiarthroplasty BRIEF HISTORY: Please see the H and P that was done by hospitalist. In brief, she is an 86-year- old white female, had a fall at home sustaining injury to the left hip. She was diagnosed with displaced femoral neck fracture. The patient was seen by orthopedic in consultation. On the following day, the patient had a left hemiarthroplasty. Postoperative course complicated by constipation requiring laxatives. 1. Elevated white cell count. 2. Fever due to UTI due to ESBL. E coli for which she was given IV ceftriaxone. 3. Insomnia and anxiety, on Xanax. Rest of the hospital course was uneventful. LABORATORIES: White cell count coming down, 13. Hematocrit 32, platelets 293, 000. SMA-7: Sodium 143, potassium 3.8, chloride 104. BUN 25, creatinine 1.4. Glucose 119. LFTs were normal. Urine cultures positive for ESBL Escherichia coli. Chest x-ray negative. At the request of the family, the patient is being transferred to the rehab with the following instructions: 1. Pneumococcal vaccine 2002. Will give the booster dose. 2. Tetanus 01/29/2015. 3. Diovan 320 daily. 4. Hydrochlorothiazide 25 daily. 5. Prilosec 20 daily. 6. Ultram 50 q.6 as needed. 7. Xanax 0.25 p.o. b.i.d. 8. Tizanidine 4 mg at bedtime. 9. Levaquin 500 daily for 7 days. Outpatient rehab and follow up in my office in 2 weeks [address] Zach Hendrickson. cc: Edmond Brooks MD [id number]
[2017-03-18 11:18] VITALS: BP 155/71
== END 2017-03-18 14:47 ==
LOC: ED 17:17 → 4N 21:51 → SUATTDRO 21:51
PROVIDERS: ADMIT Internal Medicine; ATTEND Internal Medicine